=== PATIENT | male | born 1950 | race Caucasian/White ===

== ENCOUNTER 2021-08-07 19:02 | Inpatient (IN) | payer MEDICARE ==
[2021-08-07] MEDS ORDERED: LIDOCAINE 5% PATCH TOPICAL STA (20:23)
[2021-08-07] MEDS ORDERED: fentaNYL (PF) 50 MCG/ML 2 ML AMP IVP STA (20:23)
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
--- NOTE | 2021-08-07 20:27 | XR ---
EXAMINATION TYPE: XR shoulder complete RT DATE OF EXAM: 08/07/2021 COMPARISON: NONE HISTORY: Pain TECHNIQUE: 3 views FINDINGS: There is a single pin at the greater tuberosity of the humerus. No fracture nor dislocation . AC joint is intact IMPRESSION: No acute abnormality of the right shoulder
--- NOTE | 2021-08-07 20:29 | XR ---
EXAMINATION TYPE: XR ribs RT w pa chest xray DATE OF EXAM: 08/07/2021 COMPARISON: NONE HISTORY: Pain TECHNIQUE: 5 views FINDINGS: Heart and mediastinum are normal. Lungs are clear of infiltrate. No pleural effusion or pne umothorax. There is previous right shoulder surgery. There appears to be fractures of the anterior ri ght third and fourth ribs. IMPRESSION: Acute anterior right upper rib fractures.
[2021-08-07 21:15] LABS: Basophils # (A) 0.1 k/uL (0-0.2); Basophils % (A) 0 %; Eosinophils # (A) 0.1 k/uL (0-0.7); Eosinophils % (A) 0 %; HCT 51.5 % (39.0-53.0); HGB 17.2 gm/dL (13.0-17.5); Lymphocytes # (A) 1.7 k/uL (1.0-4.8); Lymphocytes % (A) 8 %; MCH 31.7 pg (25.0-35.0); MCHC 33.3 g/dL (31.0-37.0); MCV 95.1 fL (80.0-100.0); Monocytes # (A) 1.1 k/uL (0-1.0); Monocytes % (A) 5 %; Neutrophils # (A) 18.1 k/uL (1.3-7.7); Neutrophils % (A) 86 %; Platelet Count 301 k/uL (150-450); RBC 5.42 m/uL (4.30-5.90); RDW 13.2 % (11.5-15.5); WBC 21.2 k/uL (3.8-10.6)
[2021-08-07 21:26] LABS: Potassium 4.8 mmol/L (3.5-5.1); Total Bilirubin 0.9 mg/dL (0.2-1.3)
--- NOTE | 2021-08-07 21:39 | CT ---
EXAMINATION TYPE: CT chest wo con DATE OF EXAM: 08/07/2021 COMPARISON: None HISTORY: Severe pain, RT side scapula and ribs from fall CT DLP: 689.6 mGycm Automated exposure control for dose reduction was used. Images obtained from the thoracic inlet to the diaphragm with no contrast. The lungs are clear of consolidation. There is minimal subsegmental atelectasis at the lung bases. Th ere is very tiny amount of pleural air on the right anterior chest wall measuring less than 5 mm in t hickness. There is some soft tissue air on the right anterior chest wall. There is fracture of the a nterior right fourth rib. No significant displacement. There is minimal pleural thickening right post erior lung base. The thoracic spine is intact. No compression fracture. Heart appears normal. No radha cardial effusion. There are no hilar masses. There is no mediastinal adenopathy. Thoracic aorta appea rs intact. IMPRESSION: Anterior right fourth rib fracture with a very tiny right-sided pneumothorax and small pleural effusi on. Minimal atelectasis at the lung bases. Anterior soft tissue air consistent with traumatic injury adjacent to the rib fracture.
[2021-08-07] MEDS ORDERED: HYDROmorphone 0.5 MG/0.5 ML SYRINGE IVP STA (22:12)
[2021-08-07] MEDS ORDERED: NALOXONE 0.4 MG/ML 1 ML VIAL IV PRN (22:17)
[2021-08-07] MEDS: SODIUM CHLORIDE 0.9% 1,000 ML IV SCH (23:37)
--- NOTE | 2021-08-07 23:53 | CT ---
EXAMINATION TYPE: CT abdomen pelvis w con DATE OF EXAM: 08/07/2021 COMPARISON: None HISTORY: pain CT DLP: 1933.7 mGycm Automated exposure control for dose reduction was used. CONTRAST: Performed with IV Contrast, patient injected with 80 mL of Isovue 300. There is some patchy atelectasis at the lung bases. Heart size is normal. No pericardial effusion. No pleural effusion. Liver spleen stomach pancreas appear intact. There is single large calcified galls tone. The bile ducts are not dilated. There is no adrenal mass. Kidneys show satisfactory contrast opacification. There is 2 cm cyst upper pole right kidney. There i s no hydronephrosis. Ureters are not dilated. There is no retroperitoneal adenopathy. Bladder distend s smoothly. There is no inguinal hernia. No free fluid in the pelvis. No pelvic mass. No evidence of thickened appendix. There is no mesenteric edema. No ascites or free air. No bowel obs truction. The lumbar vertebrae have normal alignment. No compression fracture. There is mild spurring of the en dplates. Bony pelvis is intact. The hip joints are intact. There is mild acetabular spur formation. IMPRESSION: There is some patchy atelectasis at the lung bases. No acute abnormality in the abdomen and pelvis. Single large gallstone.
[2021-08-08] MEDS: HYDROmorphone 0.5 MG/0.5 ML SYRINGE IVP PRN ×4 (02:29→12:27)
[2021-08-08 05:57] LABS: Basophils % (A) 0 %; Eosinophils % (A) 0 %; HCT 49.5 % (39.0-53.0); HGB 15.7 gm/dL (13.0-17.5); Lymphocytes # (A) 1.7 k/uL (1.0-4.8); Lymphocytes % (A) 10 %; MCH 30.7 pg (25.0-35.0); MCHC 31.7 g/dL (31.0-37.0); MCV 96.9 fL (80.0-100.0); Mean Platelet Volume 8.2; Monocytes # (A) 0.9 k/uL (0-1.0); Monocytes % (A) 5 %; Neutrophils # (A) 14.5 k/uL (1.3-7.7); Neutrophils % (A) 83 %; Platelet Count 313 k/uL (150-450); RDW 13.4 % (11.5-15.5); WBC 17.4 k/uL (3.8-10.6)
[2021-08-08] MEDS: SODIUM CHLORIDE 0.9% 1,000 ML IV SCH ×3 (08:03→22:03)
--- NOTE | 2021-08-08 08:10 | XR ---
EXAMINATION TYPE: XR chest 2V DATE OF EXAM: 08/08/2021 COMPARISON: 08/07/2021 INDICATION: Chest trauma TECHNIQUE: Frontal and lateral views of the chest are obtained. FINDINGS: The heart size is normal. The pulmonary vasculature is normal. The lungs are clear. No pneumothorax is evident. IMPRESSION: 1. No acute pulmonary process. Follow-up can be performed as clinically indicated.
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
[2021-08-08] MEDS: methocarbamoL 500 MG TAB PO SCH ×4 (10:20→22:05)
[2021-08-08] MEDS ORDERED: lisinopriL 10 MG TAB PO SCH (12:15)
[2021-08-08 12:56] LABS: Glucose,Whole Blood 288 mg/dL (75-99)
[2021-08-08] MEDS ORDERED: amLODIPine 5 MG TAB PO STA (13:55)
[2021-08-08] MEDS: INSULIN ASPART (NovoLOG) 100 UNIT/ML VIAL SQ SCH ×3 (14:02→21:22)
[2021-08-08] MEDS ORDERED: HYDROmorphone 1 MG/ML 1 ML SYRINGE IVP PRN (16:16)
[2021-08-08 17:05] LABS: Glucose,Whole Blood 229 mg/dL (75-99)
[2021-08-08] MEDS ORDERED: hydrALAZINE HCL 25 MG TAB PO SCH (18:29)
[2021-08-08] MEDS ORDERED: hydrALAZINE HCL 25 MG TAB PO PRN (18:30)
[2021-08-08] MEDS ORDERED: hydrALAZINE HCL 25 MG TAB PO STA (18:31)
[2021-08-08] MEDS ORDERED: HYDROmorphone 0.5 MG/0.5 ML SYRINGE IVP PRN (18:33)
[2021-08-08] MEDS: SENNOSIDES-DOCUSATE SODIUM 1 EACH TAB PO SCH (20:41)
[2021-08-08] MEDS: FAMOTIDINE 20 MG TAB PO SCH (20:42)
[2021-08-08] MEDS: HEPARIN SODIUM,PORCINE/PF 5,000 UNIT/0.5 ML SYRINGE SQ SCH (20:42)
[2021-08-08] MEDS: LIDOCAINE 5% PATCH TOPICAL SCH (20:42)
[2021-08-08] MEDS: HYDROmorphone 1 MG/ML 1 ML SYRINGE IVP PRN (20:43)
[2021-08-08 20:48] LABS: Glucose,Whole Blood 282 mg/dL (75-99)
[2021-08-08] MEDS ORDERED: INSULIN DETEMIR (LEVEMIR) 100 UNIT/ML SYR SQ SCH (21:00)
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
[2021-08-09] MEDS: HYDROmorphone 1 MG/ML 1 ML SYRINGE IVP PRN ×3 (00:56→16:15)
[2021-08-09 07:26] LABS: Glucose,Whole Blood 223 mg/dL (75-99)
--- NOTE | 2021-08-09 07:35 | XR ---
EXAMINATION TYPE: XR chest 1V DATE OF EXAM: 08/09/2021 COMPARISON: 08/08/2021 HISTORY: 71-year-old male shortness of breath TECHNIQUE: Single frontal view of the chest is obtained. FINDINGS: Heart borderline in size. Trace pleural effusions remain. Vascular/interstitial prominence may be sli ghtly increased. IMPRESSION: Borderline heart size and continued trace bilateral pleural effusions. Vascular/interstitial density appears more pronounced. Correlate for slight progression in mild CHF.
[2021-08-09] MEDS: INSULIN ASPART (NovoLOG) 100 UNIT/ML VIAL SQ SCH ×4 (07:44→21:07)
[2021-08-09] MEDS: methocarbamoL 500 MG TAB PO SCH ×4 (08:22→21:09)
[2021-08-09] MEDS: SENNOSIDES-DOCUSATE SODIUM 1 EACH TAB PO SCH ×2 (08:22→21:08)
[2021-08-09] MEDS: FAMOTIDINE 20 MG TAB PO SCH ×2 (08:22→21:08)
[2021-08-09] MEDS ORDERED: amLODIPine 5 MG TAB PO SCH (09:00)
[2021-08-09] MEDS: HEPARIN SODIUM,PORCINE/PF 5,000 UNIT/0.5 ML SYRINGE SQ SCH ×2 (10:31→21:08)
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
[2021-08-09 10:43] LABS: Basophils # (A) 0.02 X 10*3/uL (0.00-0.10); Basophils % (A) 0.2 %; Eosinophils # (A) 0.02 X 10*3/uL (0.04-0.35); Eosinophils % (A) 0.2 %; HCT 45.4 % (39.6-50.0); HGB 14.1 g/dL (13.0-17.0); Immature Grans, Automated 0.3 %; Lymphocytes # (A) 1.16 X 10*3/uL (0.90-5.00); MCH 29.9 pg (27.0-32.0); MCHC 31.1 g/dL (32.0-37.0); MCV 96.4 fL (80.0-97.0); Mean Platelet Volume 10.8 fL (9.5-12.2); Monocytes # (A) 1.13 X 10*3/uL (0.20-1.00); Monocytes % (A) 9.7 %; NRBC Per 100 WBC 0 /100 WBCS (0.0-0.0); Neutrophils # (A) 9.23 X 10*3/uL (1.80-7.70); Neutrophils % (A) 79.6 %; Platelet Count 234 X 10*3/uL (140-440); RBC 4.71 X 10*6/uL (4.40-5.60)
[2021-08-09] MEDS: SODIUM CHLORIDE 0.9% 1,000 ML IV SCH (10:44)
[2021-08-09 11:00] LABS: African American GFR (CKD) 99.9 (60.0-200.0); Albumin 4.2 g/dL (3.8-4.9); Albumin/Globulin Ratio 1.91 (1.60-3.17); Anion Gap 16.7 mmol/L (10.00-18.00); BUN/Creat Ratio 22.78 Ratio (12.00-20.00); Blood Urea Nitrogen 20.5 mg/dL (9.0-27.0); Calcium 9.1 mg/dL (8.7-10.3); Carbon Dioxide 22.3 mmol/L (20.0-27.5); Globulin 2.2 g/dL (1.6-3.3); Non-African American GFR(CKD) 86.2 (60.0-200.0); Potassium 4.6 mmol/L (3.5-5.5); Total Bilirubin 1.1 mg/dL (0.30-1.20); Total Protein 6.4 g/dL (6.2-8.2)
[2021-08-09 12:12] LABS: Glucose,Whole Blood 254 mg/dL (75-99)
[2021-08-09] MEDS ORDERED: FUROSEMIDE 10 MG/ML 4 ML VIAL IV STA (14:50)
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
[2021-08-09 17:04] LABS: Glucose,Whole Blood 312 mg/dL (75-99)
[2021-08-09 17:27] LABS: Appearance,Urine Clear (Clear); Bilirubin,Urine Negative (Negative); Blood,Urine Negative (Negative); Color,Urine Colorless; Glucose,Urine (UA) 4+ (Negative); Ketones,Urine 1+ (Negative); Leukocyte Esterase,Urine Negative (Negative); Nitrite,Urine Negative (Negative); Protein,Urine Negative (Negative); Specific Gravity,Urine 1.005 (1.001-1.035); Urobilinogen,Urine <2.0 mg/dL (<2.0)
[2021-08-09 20:47] LABS: Glucose,Whole Blood 284 mg/dL (75-99)
[2021-08-09] MEDS: FUROSEMIDE 10 MG/ML 4 ML VIAL IV SCH (21:07)
[2021-08-09] MEDS: LIDOCAINE 5% PATCH TOPICAL SCH (21:07)
[2021-08-09] MEDS: HYDROcodone/APAP 7.5-325MG 1 EACH TAB PO PRN (21:09)
[2021-08-09] MEDS: INSULIN DETEMIR (LEVEMIR) 100 UNIT/ML SYR SQ SCH (21:43)
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
[2021-08-10] MEDS: HYDROcodone/APAP 7.5-325MG 1 EACH TAB PO PRN ×3 (03:31→18:14)
[2021-08-10 06:53] LABS: Glucose,Whole Blood 209 mg/dL (75-99)
[2021-08-10] MEDS: INSULIN ASPART (NovoLOG) 100 UNIT/ML VIAL SQ SCH ×6 (08:20→21:35)
[2021-08-10] MEDS: lisinopriL 10 MG TAB PO SCH (08:20)
[2021-08-10] MEDS: SENNOSIDES-DOCUSATE SODIUM 1 EACH TAB PO SCH ×2 (08:20→20:44)
[2021-08-10] MEDS: FAMOTIDINE 20 MG TAB PO SCH ×2 (08:20→20:44)
[2021-08-10] MEDS: FUROSEMIDE 10 MG/ML 4 ML VIAL IV SCH (08:21)
[2021-08-10] MEDS: methocarbamoL 500 MG TAB PO SCH ×4 (08:21→20:44)
[2021-08-10] MEDS: HEPARIN SODIUM,PORCINE/PF 5,000 UNIT/0.5 ML SYRINGE SQ SCH ×2 (08:22→20:43)
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
[2021-08-10 10:28] LABS: Basophils # (A) 0.05 X 10*3/uL (0.00-0.10); Basophils % (A) 0.5 %; Eosinophils # (A) 0.13 X 10*3/uL (0.04-0.35); Eosinophils % (A) 1.3 %; HCT 50.6 % (39.6-50.0); HGB 16.1 g/dL (13.0-17.0); Immature Grans, Automated 0.4 %; Lymphocytes # (A) 1.94 X 10*3/uL (0.90-5.00); Lymphocytes % (A) 19.5 %; MCH 30.4 pg (27.0-32.0); MCHC 31.8 g/dL (32.0-37.0); MCV 95.5 fL (80.0-97.0); Mean Platelet Volume 10.9 fL (9.5-12.2); NRBC Per 100 WBC 0 /100 WBCS (0.0-0.0); Neutrophils # (A) 6.71 X 10*3/uL (1.80-7.70); Neutrophils % (A) 67.3 %; Platelet Count 268 X 10*3/uL (140-440); RDW 12.9 % (11.5-14.5); WBC 9.97 X 10*3/uL (4.50-10.00)
[2021-08-10 11:01] LABS: Anion Gap 18.8 mmol/L (10.00-18.00); BUN/Creat Ratio 19.3 Ratio (12.00-20.00); Blood Urea Nitrogen 19.3 mg/dL (9.0-27.0); Carbon Dioxide 28.9 mmol/L (20.0-27.5); Magnesium 2.1 mg/dL (1.5-2.4); Non-African American GFR(CKD) 75.9 (60.0-200.0); Potassium 3.9 mmol/L (3.5-5.5)
--- NOTE | 2021-08-10 11:05 | CA ---
Transthoracic Echo Report Name: Niko Rodriguez Age: 71 Gender: M : 1950 Exam Date: 08/10/2021 08:47 Exam Location: [place] [facility] Ht (in): 73 Wt (lb): 245 Ordering Physician: Luis Felipe Moore MD Attending/Referring Phys: [id number], Teresa Tube Knitter Neela Clark, TIFFANI Procedure CPT: Indications: Rule out heart disease Cardiac Hx: Technical Quality: Technically difficult study Contrast 1: Lumason Total Dose (mL): 3 Contrast 2: Total Dose (mL): MEASUREMENTS (Male / Female) Normal Values 2D ECHO LV Diastolic Diameter PLAX 4.2 cm 4.2 - 5.9 / 3.9 - 5.3 cm LV Systolic Diameter PLAX 2.8 cm IVS Diastolic Thickness 1.6 cm 0.6 - 1.0 / 0.6 - 0.9 cm LVPW Diastolic Thickness 1.5 cm 0.6 - 1.0 / 0.6 - 0.9 cm LV Relative Wall Thickness 0.8 RV Internal Dim ED PLAX 3.2 cm LA Systolic Diameter LX 3.9 cm 3.0 - 4.0 / 2.7 - 3.8 cm M-MODE Aortic Root Diameter MM 3.7 cm MV E Point Septal Separation 0.6 cm AV Cusp Separation MM 2.5 cm DOPPLER AV Peak Velocity 136.3 cm/s AV Peak Gradient 7.4 mmHg AI Peak Velocity 255.6 cm/s AI Peak Gradient 26.1 mmHg AI Pressure Half Time 354.6 ms MV Area PHT 3.3 cm??? Mitral E Point Velocity 63.9 cm/s Mitral A Point Velocity 92.4 cm/s Mitral E to A Ratio 0.7 MV Deceleration Time 233.2 ms MV E' Velocity 5.8 cm/s Mitral E to MV E' Ratio 11.0 TR Peak Velocity 327.2 cm/s TR Peak Gradient 42.8 mmHg Right Ventricular Systolic Press 46.4 mmHg FINDINGS Left Ventricle Left ventricular ejection fraction is estimated at 60-65 %. Left ventricular cavity size normal. Moderate concentric left ventricular hypertrophy. Right Ventricle Normal right ventricular size and function. Moderate pulmonary hypertension. Right Atrium Normal right atrial size. Left Atrium Normal left atrial size. Mitral Valve No mitral stenosis, regurgitation or prolapse. Aortic Valve Trileaflet aortic valve. No aortic valve stenosis. Mild aortic regurgitation. Tricuspid Valve Mild tricuspid regurgitation. Pulmonic Valve Pulmonic valve not well visualized. Pericardium Normal pericardium. Aorta Normal size aortic root and proximal ascending aorta. CONCLUSIONS Moderate LVH Normal left ventricular ejection fraction 60-65% RVSP 46 Mild tricuspid regurgitation No pericardial effusion Previewed by: Dr. Tato Gómez DO (Electronically Signed) Final Date: 10 August 2021 11:04
[2021-08-10 11:53] LABS: Glucose,Whole Blood 303 mg/dL (75-99)
[2021-08-10 17:09] LABS: Glucose,Whole Blood 278 mg/dL (75-99)
[2021-08-10] MEDS: INSULIN DETEMIR (LEVEMIR) 100 UNIT/ML SYR SQ SCH (20:43)
[2021-08-10 20:44] LABS: Glucose,Whole Blood 333 mg/dL (75-99)
[2021-08-10] MEDS: LIDOCAINE 5% PATCH TOPICAL SCH (20:44)
[2021-08-10] MEDS ORDERED: LIDOCAINE 5% PATCH TOPICAL SCH (21:45)
[2021-08-10] MEDS ORDERED: LIDOCAINE 5% PATCH TOPICAL PRN (21:55)
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
[2021-08-10] MEDS ORDERED: INSULIN DETEMIR (LEVEMIR) 100 UNIT/ML SYR SQ ONE ×3 (22:00→22:50)
[2021-08-11] MEDS: HYDROcodone/APAP 7.5-325MG 1 EACH TAB PO PRN ×3 (00:44→12:37)
[2021-08-11 07:02] LABS: Glucose,Whole Blood 197 mg/dL (75-99)
[2021-08-11 07:37] VITALS: RESP 18
[2021-08-11] MEDS: lisinopriL 10 MG TAB PO SCH (07:49)
[2021-08-11] MEDS: INSULIN ASPART (NovoLOG) 100 UNIT/ML VIAL SQ SCH ×7 (07:49→17:43)
[2021-08-11] MEDS: SENNOSIDES-DOCUSATE SODIUM 1 EACH TAB PO SCH (07:49)
[2021-08-11] MEDS: FAMOTIDINE 20 MG TAB PO SCH (07:49)
[2021-08-11] MEDS: HEPARIN SODIUM,PORCINE/PF 5,000 UNIT/0.5 ML SYRINGE SQ SCH (07:49)
[2021-08-11] MEDS: methocarbamoL 500 MG TAB PO SCH ×2 (08:54→15:30)
[2021-08-11] MEDS ORDERED: FUROSEMIDE 40 MG TAB PO SCH (09:00)
[2021-08-11] MEDS ORDERED: amLODIPine 5 MG TAB PO SCH (11:00)
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
[2021-08-11 11:29] VITALS: BMI 32.3
[2021-08-11 11:48] LABS: Glucose,Whole Blood 335 mg/dL (75-99)
[2021-08-11 13:44] VITALS: BP 126/71; PULSE 90; TEMP 98.1
[2021-08-11 15:33] LABS: Glucose,Whole Blood 309 mg/dL (75-99)
[2021-08-11] MEDS ORDERED: INSULIN ASPART (NovoLOG) 100 UNIT/ML VIAL SQ ONE (16:02)
[2021-08-11 17:09] LABS: Glucose,Whole Blood 320 mg/dL (75-99)
[2021-08-11] MEDS ORDERED: metFORMIN 500 MG TAB PO SCH (17:30)
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
[2021-08-11 18:31] LABS: Glucose,Whole Blood 282 mg/dL (75-99)
[2021-08-11] MEDS ORDERED: INSULIN DETEMIR (LEVEMIR) 100 UNIT/ML SYR SQ SCH (21:00)
== END 2021-08-11 18:36 | disposition left against medical advice (07) | DRG 199 ==
LOC: EC 19:02 → 6NMEDSUR 22:17 → OBSVTOIN 08-09 13:35
PROVIDERS: ADMIT Internal Medicine; ATTEND Internal Medicine
DX: S27.0XXA Traumatic pneumothorax, initial encounter (principal); I50.31 Acute diastolic (congestive) heart failure; J96.01 Acute respiratory failure with hypoxia; S22.31XA Fracture of one rib, right side, initial encounter for closed fracture; J98.11 Atelectasis; N17.9 Acute kidney failure, unspecified; Z53.29 Procedure and treatment not carried out because of patient's decision for other reasons; E11.65 Type 2 diabetes mellitus with hyperglycemia; K21.9 Gastro-esophageal reflux disease without esophagitis; I11.0 Hypertensive heart disease with heart failure; E78.5 Hyperlipidemia, unspecified; Z20.822 Contact with and (suspected) exposure to COVID-19; G47.30 Sleep apnea, unspecified; M19.90 Unspecified osteoarthritis, unspecified site; V18.0XXA Pedal cycle driver injured in noncollision transport accident in nontraffic accident, initial encounter; Y93.55 Activity, bike riding; Z79.4 Long term (current) use of insulin; Z79.84 Long term (current) use of oral hypoglycemic drugs; Z79.899 Other long term (current) drug therapy; Z85.820 Personal history of malignant melanoma of skin; Z96.652 Presence of left artificial knee joint; Z88.0 Allergy status to penicillin; I07.1 Rheumatic tricuspid insufficiency; Z86.79 Personal history of other diseases of the circulatory system
CPT/HCPCS: 36415; 71045; 71046; 71250; 74177; 80048; 80053; 81003; 83036; 83690; 83735; 83880; 84484; 85025; 87636; 93306; 94760; 96374; 96375; 99285

== ENCOUNTER 2022-07-05 10:46 | Day surgery (SDC) | payer MEDICARE ==
[2022-06-30 14:36] VITALS: BMI 30.4
--- NOTE | 2022-07-03 12:36 | P.HPOR ---
History of Present Illness H&P Date: 07/03/22 Chief Complaint: Right ring finger trigger finger, small finger dupuytrens c ontracture Subjective: This is a 72 year old male that presents today for a post-operative visit after undergoing left ring finger A1 kyree release and left hand Dupuytrens palmar fasciectomy on 05/03/22. He is doing well and has had no issues and noticed the finger does not lock anymore. He wishes to schedule surgery for his right ring finger trigger finger and right small finger Dupuytren's contracture. He has had right sided pain and locking/catching of the ring finger similar to the left ring finger for several months. He also has a right small finger Dupuytren's contracture that has been present for several years and is no long able to put his hand flat on a table and finds the finger gets in the way due to the inability to fully extend the digit. Physical Examination: LUE: AIN/PIN/Radial/Ulnar/Median motor intact. Radial/Ulnar/Median SILT. 2+/4 Radial/Ulnar pulses palpated. Volar penny incision well approximated with aviles tures intact. RUE: AIN/PIN/Radial/Ulnar/Median motor intact. Radial/Ulnar/Median SILT. 2+/4 Radial/Ulnar pulses palpated. RSF Dupuytren's chord with 45 degree flexion contracture of PIP joint. TTP over RRF A1 kyree with locking and catching. Impression: 1.) S/P Left ring finger A1 kyree release and left hand Dupuytrens palmar fasciectomy 2.) Right small finger Dupuytrens contracture 3.) Right ring finger trigger finger Plan: Diagnosis and treatment options were discussed with the patient. Sutures are removed in office today. He may resume normal activity and may continue to work on ROM. He wishes to proceed with right ring finger A1 kyree release and a right small finger Dupuytren's palmar fasciectomy. Risks and benefits of surgery including bleeding, infection, damage to surrounding tissue, need for further surgery, residual numbness were discussed and the patient wished to go forward with surgery. The patient is agreeable with this plan. -Mati Deutsch DO Orthopedic Hand/Upper Extremity Surgeon Past Medical History Past Medical History: Cancer, Diabetes Mellitus, GERD/Reflux, Hyperlipidemia, Hypertension, Osteoarthritis (OA), Sleep Apnea/CPAP/BIPAP Additional Past Medical History / Comment(s): varicose veins, melanoma, hx if p ericarditis History of Any Multi-Drug Resistant Organisms: None Reported Past Surgical History: Back Surgery, Heart Catheterization, Joint Replacement, Tonsillectomy Additional Past Surgical History / Comment(s): surgery for sleep apnea, left knee replacement,left achilles tendon repair, erika knee arthroscopy, rt shoulder rotator cuff, laminectomy, LT HAND DUPUTYTREN'S PALMAR SX, LT RING FINGER KYREE RELEASE. RT CHEST AREA-HAD A BIOSPY OF SKIN-STILL NOT HEALED COMPLETELY- INSTRUCTED TO NOTIFY DR. DEUTSCH IF NOT BETTER BY SUNDAY. Past Anesthesia/Blood Transfusion Reactions: No Reported Reaction Smoking Status: Never smoker - Past Family History Mother Family Medical History: Cancer Medications and Allergies Home Medications Medication Instructions Recorded Confirmed Type Ascorbic Acid [Vitamin C] 1,000 mg PO DAILY 05/24/18 06/30/22 History Cholecalciferol (Vitamin D3) 2,000 unit PO DAILY 05/24/18 06/30/22 History [Vitamin D3] Multivit-Min/FA/Lycopen/Lutein 1 tab PO DAILY 05/24/18 06/30/22 History [Centrum Silver Tablet] Simvastatin [Zocor] 40 mg PO HS 05/24/18 06/30/22 History Vitamin E (Dl,Tocopheryl Acet) 400 unit PO DAILY 05/24/18 06/30/22 History [Vitamin E (400 Iu = 180 mg)] lisinopriL [Zestril] 10 mg PO DAILY 05/24/18 06/30/22 History Pierson-3 Fatty Acids/Fish Oil [Fish 1 cap PO DAILY 08/08/21 06/30/22 History Oil 1,000 mg Softgel] Canagliflozin [Invokana] 100 mg PO DAILY #10 tab 08/11/21 06/30/22 Rx Ibuprofen [Motrin] 400 mg PO Q8HR PRN 3 Days #10 tab 08/11/21 06/30/22 Rx Insulin Glargine,Hum.rec.anlog 40 units SQ HS 04/28/22 06/30/22 History [Lantus Solostar Pen] sitaGLIPtin PHOS/metFORMIN HCL 1 each PO BID 02/17/23 04/21/23 History [Janumet 50-1,000 mg Tablet] Omeprazole 20 mg PO DAILY 06/30/22 06/30/22 History Allergies Allergy/AdvReac Type Severity Reaction Status Date / Time Penicillins Allergy Rash/Hives Verified 06/30/22 14:19 Physical Examination Osteopathic Statement: *. No significant issues noted on an osteopathic structural exam other than those noted in the History and Physical/Consult.
[~2022-07-05 10:46] MED LIST: DEXAMETHASONE SOD PHOSPHATE 4 MG/ML 1 ML VIAL IV ONE; HYDROmorphone 0.5 MG/0.5 ML SYRINGE IVP PRN; LACTATED RINGERS 1,000 ML IV SCH; LIDOCAINE 1% (10MG/ML) FOR IV START INTRADERMA PRN; ONDANSETRON 4 MG/2 ML VIAL IVP ONE; Pre Op ABX Message 1 EACH MISC MISCELLANE ONE
[2022-07-05 11:37] LABS: Glucose,Whole Blood 209 mg/dL (70-110)
[2022-07-05] MEDS ORDERED: INSULIN ASPART (NovoLOG) 100 UNIT/ML VIAL SQ ONE (11:40)
[2022-07-05] MEDS ORDERED: LIDOCAINE 2% INJ 20 MG/ML (2 ML VIAL) ONE (12:06)
[2022-07-05] MEDS ORDERED: MIDAZOLAM 2 MG/2 ML VIAL ONE (12:06)
[2022-07-05] MEDS ORDERED: PROPOFOL 10 MG/ML 20 ML VIAL IV ONE (12:06)
[2022-07-05] MEDS ORDERED: fentaNYL (PF) 50 MCG/ML 2 ML AMP ONE (12:06)
[2022-07-05] MEDS ORDERED: BUPIVACAINE (PF) 0.5% 30 ML VIAL SQ ONE (13:00)
[2022-07-05] MEDS ORDERED: BACITRACIN OINT 1 EACH PACKET TOPICAL ONE (13:00)
[2022-07-05 13:31] VITALS: TEMP 98
--- NOTE | 2022-07-05 13:38 | P.OP ---
Date of Procedure: 07/05/22 Preoperative Diagnosis: 1.) Right small finger Dupuytren's contracture 2.) Right ring finger trigger finger Postoperative Diagnosis: 1.) Right small finger Dupuytren's contracture 2.) Right ring finger trigger finger Procedure(s) Performed: 1.) Right small finger Dupuytren's contracture palmar fasciectomy 2.) Right ring finger trigger finger A1 gray release Anesthesia: TONIAA Surgeon: Mati Donovan Gang Sawyer #1: Arash Choe Estimated Blood Loss (ml): 0 Pathology: none sent Condition: stable Disposition: PACU Description of Procedure: This is a 72 year old male who presents today for surgical intervention for right small finger Dupuytren's contracture and right ring finger A1 gray release for trigger finger that has failed conservative treatment. Risks and benefits of surgery were discussed with the patient including bleeding, damage to surrounding tissue, infection, recurrence, need for further surgery as well as risks of anesthesia including pulmonary embolism and even and the patient wished to proceed with surgical intervention. The patient was seen in the pre-operative area by myself. Consent and H&P were completed and updated. The correct extremity was marked in the pre-operative area by myself and all other questions were answered. Operative Narrative: The patient was brought to the operating room by the department of anesthesia. They remained on the portable stretcher and a rolling hand table was brought to the side of the operative extremity. Pre-operative time out was performed indicating the correct patient, procedure and laterality. All in the room agreed. Pre-operative antibiotics were given prior to skin incision. The patient was then drifted off to sleep by the department of anesthesia. A nonsterile tourniquet was then applied to the operative extremity and the right upper extremity was then prepped and draped in normal sterile fashion. The operative extremity was the exsanguinated with an esmarch bandage and the tourniquet was inflated to 250mmHg. 15 blade scalpel was then used to make a incision in a Radha type fashion of the right small finger Dupuytren's cord from the level of the mid palm to the level of the PIP joint crease. Blunt dissection was taken down to reveal the thickened Dupuytrens chord originating from the palmar fascia. Neurovascular bundles were identified and protected and blunt tentomy scissors and combination of 15 blade scalpel were used to the pathologic fascial tissues from surrounding structures. The thick fascial tissue was well dissected out from deep and superficial tissues and released from it's proximal attachment to the palmar fascia and then released in a proximal to distal fashion. After excision at the distal portion attachment at the level of the PIP joint crease the finger was able to be fully extended. Neurovascular bundles were then identified and directly visualized to the small finger and remained intact. The A1 gray was identified at the base of the ring finger through the same incision. Neurovascular bundles were protected on both sides. Blunt dissection was taken down to the A1 gray which was released from proximal to distal. The hand was then taken through range of motion and no locking or catching was appreciated. The wound was then irrigated and skin closure was performed with 4-0 nylon sutures. 10cc's total of 0.5% bupivicaine was injected to perform digital blocks of the ring and small finger. Large bulky soft dressing with fluffs, adaptic, bacitracin, cast padding and bryanna wrap was applied. Tourniquet was let down and all digits had immediate perfusion. The patient was then woken by the departde nt of anesthesia and transferred to PACU in stable condition. Arash DIAZ was present for the case in it's entirety to assist in umana portions of the case and protection of vital neurovascular structures. Mati Donovan D.O. Orthopedic Hand/Upper Extremity Surgeon
[2022-07-05 13:54] LABS: Glucose,Whole Blood 178 mg/dL (70-110)
[2022-07-05 14:20] VITALS: PULSE 58; RESP 20
[2022-07-05 14:38] VITALS: BP 137/74
== END 2022-07-05 15:22 | disposition home or self-care (01) ==
LOC: OR 10:46
PROVIDERS: ATTEND Orthopaedic Surgery Hand Surgery
DX: M65.341 Trigger finger, right ring finger (principal); M72.0 Palmar fascial fibromatosis [Dupuytren]; E11.9 Type 2 diabetes mellitus without complications; K21.9 Gastro-esophageal reflux disease without esophagitis; E78.5 Hyperlipidemia, unspecified; M19.90 Unspecified osteoarthritis, unspecified site; G47.33 Obstructive sleep apnea (adult) (pediatric); Z99.89 Dependence on other enabling machines and devices; Z95.5 Presence of coronary angioplasty implant and graft; Z98.890 Other specified postprocedural states; Z80.8 Family history of malignant neoplasm of other organs or systems; Z79.899 Other long term (current) drug therapy; Z79.84 Long term (current) use of oral hypoglycemic drugs; Z79.1 Long term (current) use of non-steroidal anti-inflammatories (NSAID); Z88.0 Allergy status to penicillin
CPT/HCPCS: 26123; J2250; J1100; J2405; J3010; J2704; J2001

== ENCOUNTER → 2024-06-23 | Outpatient (CLI) | payer MEDICARE ==
[2024-06-23 08:11] LABS: African American GFR (CKD) >90 (>60 ml/min/1.73 sqM); Blood Urea Nitrogen 23 mg/dL (9-20); Non-African American GFR(CKD) 84 (>60 ml/min/1.73 sqM)
--- NOTE | 2024-06-23 10:03 | CT ---
EXAMINATION TYPE: CT urogram wo/w con DATE OF EXAM: 06/23/2024 9:17 AM COMPARISON: 08/07/2021. CT abdomen pelvis most recent from CLINICAL INDICATION: Male, 74 years old with history of R31.0 GROSS HEMATURIA; PHH, no pain. TECHNIQUE: Urogram with imaging of the abdomen and pelvis. Coronal and sagittal reformats were perfo rmed. 2D and 3D reconstructions are performed to assist visualization of the urinary tract on a [employer] workstation. Contrast used:100ml mL of Isovue 370 with IV Contrast, Oral contrast used: None. CT DLP: 4039.70 mGycm, Automated exposure control for dose reduction was used. FINDINGS: LOWER CHEST: There is scattered coronary calcifications. Otherwise, no significant findings. GENITOURINARY: RIGHT KIDNEY AND URETER: No calculi. No hydronephrosis or hydroureter. A few cortical cysts, largest measuring 2.0 cm.. No urothelial lesions: no filling defect, dilation, stricture or wall thickening. LEFT KIDNEY AND URETER: No calculi. No hydronephrosis or hydroureter. Tiny 5 mm cortical cyst. No uro thelial lesions: no filling defect, dilation, stricture or wall thickening. URINARY BLADDER: Moderate circumferential bladder wall thickening. Mild perivesicular fat stranding. There is a 3.1 x 1.6 cm soft tissue mass along the left lateral bladder wall. REPRODUCTIVE: Prostate gland remains mildly enlarged at 4.8 cm wide. ABDOMEN LIVER: Unremarkable. GALLBLADDER AND BILE DUCTS: Incidental 1.5 cm gallstone. No abnormal gallbladder distention. No bilia ry ductal dilatation. PANCREAS: Unremarkable. SPLEEN: Unremarkable. ADRENAL GLANDS: Unremarkable. STOMACH AND BOWEL: Tiny hiatal hernia. No evidence of bowel obstruction. Moderate stool burden. Redun dant sigmoid colon. No pericolonic inflammatory change. PERITONEUM: No evidence of pneumoperitoneum, free fluid, or adenopathy. VASCULATURE: No evidence of aortic aneurysm. MUSCULOSKELETAL: Hypertrophic facet arthropathy mid to lower lumbar spine especially on the left. Baa strup's disease mid to lower lumbar spine. Disc bulge and ligamentum flavum thickening at L3-L4 may c ontribute to a moderate focal spinal canal stenosis. No osseous destructive process. LYMPH NODES: No gross evidence for lymphadenopathy. SOFT TISSUE/ABDOMINAL WALL: Unremarkable IMPRESSION: 1. A 3.1 x 1.6 cm soft tissue mass along the left lateral bladder wall. Highly suspicious for urothel ial carcinoma. Further workup advised. 2. A few scattered small benign cysts within both kidneys, largest measuring 2.0 cm. No nephrolithias is or hydronephrosis. 3. Mild prostatomegaly of 4.8 cm wide. Mild circumferential bladder wall thickening could reflect chr onic bladder wall hypertrophy. Correlate to exclude cystitis. 4. Incidental 1.5 cm gallstone. Moderate stool burden. [facility], , 06/23/2024 10:01 AM
== END | disposition home or self-care (01) ==
LOC: RADCTMAIN 07:35
PROVIDERS: ATTEND Urology
DX: N40.0 Benign prostatic hyperplasia without lower urinary tract symptoms (principal); R31.0 Gross hematuria; N32.89 Other specified disorders of bladder; N28.1 Cyst of kidney, acquired
CPT/HCPCS: 82565; 84520; 74178; 36415; 74400; Q9967

== ENCOUNTER → 2024-07-15 | Outpatient (CLI) | payer MEDICARE ==
[2024-07-15 08:17] LABS: African American GFR (CKD) >90 (>60 ml/min/1.73 sqM); Blood Urea Nitrogen 17 mg/dL (9-20); Non-African American GFR(CKD) 85 (>60 ml/min/1.73 sqM)
--- NOTE | 2024-07-15 08:51 | CT ---
EXAMINATION TYPE: CT chest w con DATE OF EXAM: 07/15/2024 8:37 AM COMPARISON: 08/07/2021 CLINICAL INDICATION: Male, 74 years old with history of C67.9 MALIGNANT NEOPLASM OF BLADDER, UNSPECIF IED; PHH, bladder CA TECHNIQUE: Multiple axial images were obtained through the chest. Sagittal and coronal reformats were created for review. Contrast used:100 mL of Isovue [address] DLP: 533.4 mGycm, Automated exposure control for dose reduction was used. FINDINGS: Heart is normal size without pericardial effusion. Mild aortic valve calcifications. Scattered LAD an d RCA coronary artery calcifications are present. Ectatic upper ascending aorta 3.9 cm. Minimal atherosclerotic arch calcifications. Conventional arter ial vessel branching anatomy. No thoracic lymph adenopathy by CT size criteria. Trace bilateral gynecomastia. Mildly enlarged caliber main right and left pulmonary arteries up to 2.6 cm may reflect underlying pu lmonary hypertension. Lungs show no consolidation or pleural effusion. No suspicious pulmonary nodule identified. Tiny hiatal hernia. Incidental 1.5 cm gallstone and scattered mild to moderate stool. 1.6 cm medial u pper pole cyst right kidney redemonstrated. Bones: [facility] mid to lower thoracic spine. IMPRESSION: 1. No acute pulmonary process or suspicious pulmonary nodules. 2. Scattered LAD and RCA coronary artery calcifications. Possible underlying pulmonary arterial hyper tension. 3. Tiny hiatal hernia and 1.5 cm gallstone. [facility], Workstation: [email or web address], 07/15/2024 8:49 AM
--- NOTE | 2024-07-15 11:38 | NM ---
INDICATION: Patient age:Male; 74 years old; Reason for study: C67.9 MALIGNANT NEOPLASM OF BLADDER, UNSPECIFIED; [facility]. COMPARISON: CT chest 07/15/2024, CT urogram 06/23/2024, CT abdomen and pelvis 08/07/2021. TECHNIQUE: Intravenous administration of 24.4 mCi of Technetium 99m-hydroxydiphosphonate followed by multiple scintigraphic images of the appendicular and axial skeleton. Additionally, small field of vi ew planar anterior and posterior images of the lumbosacral spine and pelvis. FINDINGS: No abnormal uptake is identified within the appendicular or axial skeleton to suggest metastatic dise ase. There is increased uptake within the bilateral shoulder, bilateral knees, sternoclavicular, left ankl e, and sacroiliac joints consistent with degenerative changes. No other photopenic areas or areas of increased activity are identified. Physiologic radiotracer activity is demonstrated in the kidneys and bladder. IMPRESSION: Nothing to suggest osseous metastatic disease. [facility], , 07/15/2024 11:36 AM
== END | disposition home or self-care (01) ==
LOC: RADCTMAIN 07:40
PROVIDERS: ATTEND Urology
DX: C67.9 Malignant neoplasm of bladder, unspecified (principal); I25.10 Atherosclerotic heart disease of native coronary artery without angina pectoris; K80.20 Calculus of gallbladder without cholecystitis without obstruction; K44.9 Diaphragmatic hernia without obstruction or gangrene
CPT/HCPCS: 82565; 84520; 71260; 78306; A9503; Q9967

== ENCOUNTER 2024-07-19 17:00 | Emergency (ER) | payer MEDICARE ==
--- NOTE | 2024-07-19 18:20 | ED ---
General Adult HPI - General Chief complaint: Skin/Abscess/Foreign Body Stated complaint: B/L Leg Rash Time Seen by Provider: 07/19/24 17:08 Source: patient, RN notes reviewed Limitations: no limitations - History of Present Illness Initial comments: 74-year-old male presents to the emergency department for evaluation of rash on both of his legs. Patient states that this started on morning. He states that was mostly on his left foot and ankle. He notes that today it is significantly progressed to the tops of both of his feet and up his legs. He notes that it may be mildly itchy but is not painful. He denies any other symptoms. Denies any fever, chills, URI symptoms. - Related Data Home Medications Medication Instructions Recorded Confirmed Ascorbic Acid [Vitamin C] 1,000 mg PO DAILY 05/24/18 07/05/22 Cholecalciferol (Vitamin D3) 2,000 unit PO DAILY 05/24/18 07/05/22 [Vitamin D3] Multivit-Min/FA/Lycopen/Lutein 1 tab PO DAILY 05/24/18 07/05/22 [Centrum Silver Tablet] Simvastatin [Zocor] 40 mg PO HS 05/24/18 07/05/22 Vitamin E (Dl,Tocopheryl Acet) 400 unit PO DAILY 05/24/18 07/05/22 [Vitamin E (400 Iu = 180 mg)] lisinopriL [Zestril] 10 mg PO DAILY 05/24/18 07/05/22 [place]-3 Fatty Acids/Fish Oil [Fish 1 cap PO DAILY 08/08/21 07/05/22 Oil 1,000 mg Softgel] Insulin Glargine,Hum.rec.anlog 40 units SQ HS 04/28/22 07/05/22 [Lantus Solostar Pen] sitaGLIPtin PHOS/metFORMIN HCL 1 each PO BID 04/28/22 07/05/22 [Janumet 50-1,000 mg Tablet] Omeprazole 20 mg PO DAILY 06/30/22 07/05/22 Previous Rx's Medication Instructions Recorded Canagliflozin [Invokana] 100 mg PO DAILY #10 tab 08/11/21 Ibuprofen [Motrin] 400 mg PO Q8HR PRN 3 Days #10 tab 08/11/21 Cephalexin [Keflex] 500 mg PO Q6HR #28 cap 07/19/24 Allergies Allergy/AdvReac Type Severity Reaction Status Date / Time Penicillins Allergy Rash/Hives Verified 07/19/24 17:06 Review of Systems ROS Statement: Those systems with pertinent positive or pertinent negative responses have been documented in the HPI. ROS Other: All systems not noted in ROS Statement are negative. Past Medical History Past Medical History: Cancer, Diabetes Mellitus, GERD/Reflux, Hyperlipidemia, Hypertension, Osteoarthritis (OA), Sleep Apnea/CPAP/BIPAP Additional Past Medical History / Comment(s): varicose veins, melanoma, hx if pericarditis, Bladder cancer History of Any Multi-Drug Resistant Organisms: None Reported Past Surgical History: Back Surgery, Heart Catheterization, Joint Replacement, Tonsillectomy Additional Past Surgical History / Comment(s): surgery for sleep apnea, left knee replacement,left achilles tendon repair, erika knee arthroscopy, rt shoulder rotator cuff, laminectomy, LT HAND DUPUTYTREN'S PALMAR SX, LT RING FINGER KYREE RELEASE. RT CHEST AREA-HAD A BIOSPY OF SKIN-STILL NOT HEALED COMPLETELY- INSTRUCTED TO NOTIFY DR. DEUTSCH IF NOT BETTER BY SUNDAY. Past Anesthesia/Blood Transfusion Reactions: No Reported Reaction Past Psychological History: No Psychological Hx Reported Smoking Status: Never smoker Past Alcohol Use History: None Reported Past Drug Use History: None Reported - Past Family History Mother Family Medical History: Cancer General Exam Limitations: no limitations General appearance: alert, in no apparent distress Head exam: Present: atraumatic, normocephalic, normal inspection Eye exam: Present: normal appearance, PERRL, EOMI. Absent: scleral icterus, conjunctival injection, periorbital swelling ENT exam: Present: normal exam, mucous membranes moist Neck exam: Present: normal inspection. Absent: tenderness, meningismus, lymphadenopathy Respiratory exam: Present: normal lung sounds bilaterally. Absent: respiratory distress, wheezes, rales, rhonchi, stridor Cardiovascular Exam: Present: regular rate, normal rhythm, normal heart sounds. Absent: systolic murmur, diastolic murmur, rubs, gallop, clicks GI/Abdominal exam: Present: soft, normal bowel sounds. Absent: distended, tenderness, guarding, rebound, rigid Extremities exam: Present: full ROM, normal capillary refill. Absent: tenderness, pedal edema, joint swelling, calf tenderness Back exam: Present: normal inspection Neurological exam: Present: alert, oriented X3 Psychiatric exam: Present: normal affect, normal mood Skin exam: Present: warm, dry, intact, other (Purpuric rash on bilateral lower extremities). Absent: normal color Course Vital Signs 07/19/24 07/19/24 17:02 20:37 Temperature 97.9 F 98.0 F Pulse Rate 96 73 Respiratory 17 18 Rate Blood Pressure 130/80 147/79 O2 Sat by Pulse 98 97 Oximetry Medical Decision Making - Medical Decision Making Was pt. sent in by a medical professional or institution (, JOE, SENIOR UX DEVELOPER, urgent care, hospital, or care home...) When possible be specific @ -No Did you speak to anyone other than the patient for history (EMS, parent, family, police, friend...)? What history was obtained from this source @ -No Did you review nursing and triage notes (agree or disagree)? Why? @ -I reviewed and agree with nursing and triage notes Were old charts reviewed (outside hosp., previous admission, EMS record, old EKG, old radiological studies, urgent care reports/EKG's, care home records)? Report findings @ -No old charts were reviewed Differential Diagnosis (chest pain, altered mental status, abdominal pain women, abdominal pain men, vaginal bleeding, weakness, fever, dyspnea, syncope, headache, dizziness, GI bleed, back pain, seizure, CVA, palpatations, mental health, musculoskeletal)? @ -henoch-schonlein purpura, vasculitis, ITP, allergic reaction, this list is not all inclusive EKG interpreted by me (3pts min.). @ -None X-rays interpreted by me (1pt min.). @ -None done CT interpreted by me (1pt min.). @ -None done U/S interpreted by me (1pt. min.). @ -None done What testing was considered but not performed or refused? (CT, X-rays, U/S, labs)? Why? @ -None What meds were considered but not given or refused? Why? @ -None Did you discuss the management of the patient with other professionals (JOE hollis i.e., Dr., SENIOR UX DEVELOPER, lab, RT, psych nurse, vp digital marketing social media and crm, special machine operator, teacher, special police officer, family independence case manager)? Give summary @ -No Was smoking cessation discussed for >3mins.? @ -No Was critical care preformed (if so, how long)? @ -No Were there social determinants of health that impacted care today? How? (Homelessness, low income, unemployed, alcoholism, drug addiction, transportation, low edu. Level, literacy, decrease access to med. care, prison, rehab)? @ -No Was there de-escalation of care discussed even if they declined (Discuss DNR or withdrawal of care, Hospice)? DNR status @ -No What co-morbidities impacted this encounter? (DM, HTN, Smoking, COPD, CAD, Cancer, CVA, ARF, Chemo, Hep., AIDS, mental health diagnosis, sleep apnea, morbid obesity)? @ -None Was patient admitted / discharged? Hospital course, mention meds given and route, prescriptions, significant lab abnormalities, going to OR and other pertinent info. @ -Discharge. Patient presented emergency department for rash. Patient has a purpuric rash on bilateral lower extremities. Laboratory studies obtained which revealedPlatelets within normal limits, normal coagulation studies, WBC and hemoglobin within normal limits. CMP is nonactionable at this time. Mild elevation in CRP. UA shows moderate blood, large leukocyte esterase, greater than 182 WBCs. This will be sent for urine culture. The patient will be started on antibiotics and provided a dose of steroids to assist this likely vasculitis from UTI. I advised that he should stay in the hospital although the patient wished to be discharged. Case discussed with Dr. Villatoro Undiagnosed new problem with uncertain prognosis? @ -No Drug Therapy requiring intensive monitoring for toxicity (Heparin, Nitro, Insulin, Cardizem)? @ -No Were any procedures done? @ -No Diagnosis/symptom? @ -UTI Acute, or Chronic, or Acute on Chronic? @ -acute Uncomplicated (without systemic symptoms) or Complicated (systemic symptoms)? @ -uncomplicated Side effects of treatment? @ -No Exacerbation, Progression, or Severe Exacerbation? @ -No Poses a threat to life or bodily function? How? (Chest pain, [place], [place], pneumonia, PE, COPD, DKA, ARF, appy, cholecystitis, CVA, Diverticulitis, Homicidal, Suicidal, threat to staff... and all critical care pts) @ -No - Lab Data Result diagrams: 07/19/24 18:07 07/19/24 18:07 Lab Results 07/19/24 07/19/2425 Range/Units 18:07 18:07 18:07 WBC 10.89 H (4.50-10.00) 10*3/uL RBC 4.60 (4.40-5.60) 10*6/uL Hgb 14.2 (13.0-17.0) g/dL Hct 42.0 (39.6-50.0) % MCV 91.3 (80.0-97.0) fL MCH 30.9 (27.0-32.0) pg MCHC 33.8 (32.0-37.0) g/dL Plt Count 398 (140-440) 10*3/uL MPV 9.5 (9.5-12.2) fL Immature Gran % (Auto) 1.0 % Neutrophils % 73.5 % Lymphocytes % 14.0 % Monocytes % 7.8 % Eosinophils % 3.2 % Basophils % 0.5 % Immature Gran # 0.11 H (0.00-0.04) 10*3/uL Neutrophils # 8.01 H (1.80-7.70) 10*3/uL Lymphocytes # 1.52 (0.90-5.00) 10*3/uL Monocytes # 0.85 (0.20-1.00) 10*3/uL Eosinophils # 0.35 (0.04-0.35) 10*3/uL Basophils # 0.05 (0.00-0.10) 10*3/uL PT 10.3 (10.0-12.5) sec INR 0.9 (<1.2) APTT 22.9 (22.0-30.0) sec Sodium 137 (137-145) mmol/L Potassium 4.2 (3.5-5.1) mmol/L Chloride 97 L (98-107) mmol/L Carbon Dioxide 30 (22-30) mmol/L Anion Gap 10 mmol/L BUN 19 (9-20) mg/dL Creatinine 0.86 (0.66-1.25) mg/dL Est GFR (CKD-EPI)AfAm >90 (>60 ml/min/1.73 sqM) Est GFR (CKD-EPI)NonAf 86 (>60 ml/min/1.73 sqM) Glucose 146 H (74-99) mg/dL Calcium 9.7 (8.4-10.2) mg/dL Total Bilirubin 0.6 (0.2-1.3) mg/dL AST 30 (17-59) U/L ALT 25 (4-49) U/L Alkaline Phosphatase 163 H (38-126) U/L C-Reactive Protein 2.0 H (<1.0) mg/dL Total Protein 6.7 (6.3-8.2) g/dL Albumin 3.8 (3.5-5.0) g/dL Urine Color Urine Appearance (Clear) Urine pH (5.0-8.0) Ur Specific [place] (1.001-1.035) Urine Protein (Negative) Urine Glucose (UA) (Negative) Urine Ketones (Negative) Urine Blood (Negative) Urine Nitrite (Negative) Urine Bilirubin (Negative) Urine Urobilinogen (<2.0) mg/dL Ur Leukocyte Esterase (Negative) Urine RBC (0-5) /hpf Urine WBC (0-5) /hpf 05/25 Range/Units 18:20 WBC (4.50-10.00) 10*3/uL RBC (4.40-5.60) 10*6/uL Hgb (13.0-17.0) g/dL Hct (39.6-50.0) % MCV (80.0-97.0) fL MCH (27.0-32.0) pg MCHC (32.0-37.0) g/dL Plt Count (140-440) 10*3/uL MPV (9.5-12.2) fL Immature Gran % (Auto) % Neutrophils % % Lymphocytes % % Monocytes % % Eosinophils % % Basophils % % Immature Gran # (0.00-0.04) 10*3/uL Neutrophils # (1.80-7.70) 10*3/uL Lymphocytes # (0.90-5.00) 10*3/uL Monocytes # (0.20-1.00) 10*3/uL Eosinophils # (0.04-0.35) 10*3/uL Basophils # (0.00-0.10) 10*3/uL PT (10.0-12.5) sec INR (<1.2) APTT (22.0-30.0) sec Sodium (137-145) mmol/L Potassium (3.5-5.1) mmol/L Chloride (98-107) mmol/L Carbon Dioxide (22-30) mmol/L Anion Gap mmol/L BUN (9-20) mg/dL Creatinine (0.66-1.25) mg/dL Est GFR (CKD-EPI)AfAm (>60 ml/min/1.73 sqM) Est GFR (CKD-EPI)NonAf (>60 ml/min/1.73 sqM) Glucose (74-99) mg/dL Calcium (8.4-10.2) mg/dL Total Bilirubin (0.2-1.3) mg/dL AST (17-59) U/L ALT (4-49) U/L Alkaline Phosphatase (38-126) U/L C-Reactive Protein (<1.0) mg/dL Total Protein (6.3-8.2) g/dL Albumin (3.5-5.0) g/dL Urine Color Colorless Urine Appearance Cloudy (Clear) Urine pH 6.5 (5.0-8.0) Ur Specific [place] 1.028 (1.001-1.035) Urine Protein Negative (Negative) Urine Glucose (UA) 4+ H (Negative) Urine Ketones Negative (Negative) Urine Blood Moderate H (Negative) Urine Nitrite Negative (Negative) Urine Bilirubin Negative (Negative) Urine Urobilinogen <2.0 (<2.0) mg/dL Ur Leukocyte Esterase Large H (Negative) Urine RBC 47 H (0-5) /hpf Urine WBC >182 H (0-5) /hpf Disposition Clinical Impression: UTI (urinary tract infection) Disposition: HOME SELF-CARE Condition: Stable Prescriptions: Cephalexin [Keflex] 500 mg PO Q6HR #28 cap Is patient prescribed a controlled substance at d/c from ED?: No Referrals: Gary Womack DO [Primary Care Provider] - 1-2 days
[2024-07-19 18:31] LABS: Basophils # (A) 0.05 10*3/uL (0.00-0.10); Basophils % (A) 0.5 %; Eosinophils # (A) 0.35 10*3/uL (0.04-0.35); Eosinophils % (A) 3.2 %; HGB 14.2 g/dL (13.0-17.0); Lymphocytes # (A) 1.52 10*3/uL (0.90-5.00); MCH 30.9 pg (27.0-32.0); MCHC 33.8 g/dL (32.0-37.0); MCV 91.3 fL (80.0-97.0); Mean Platelet Volume 9.5 fL (9.5-12.2); Monocytes # (A) 0.85 10*3/uL (0.20-1.00); Monocytes % (A) 7.8 %; Neutrophils # (A) 8.01 10*3/uL (1.80-7.70); Neutrophils % (A) 73.5 %; Platelet Count 398 10*3/uL (140-440); RDW 12.8 % (11.5-14.5); WBC 10.89 10*3/uL (4.50-10.00)
[2024-07-19 18:39] LABS: Appearance,Urine Cloudy (Clear); Bilirubin,Urine Negative (Negative); Blood,Urine Moderate (Negative); Color,Urine Colorless; Glucose,Urine (UA) 4+ (Negative); Ketones,Urine Negative (Negative); Leukocyte Esterase,Urine Large (Negative); Nitrite,Urine Negative (Negative); PH, Urine 6.5 (5.0-8.0); Protein,Urine Negative (Negative); RBC,Urine 47 /hpf (0-5); Specific Gravity,Urine 1.028 (1.001-1.035); Urobilinogen,Urine <2.0 mg/dL (<2.0); WBC,Urine >182 /hpf (0-5)
[2024-07-19 18:40] LABS: INR 0.9 (<1.2); Partial Thromboplastin Time 22.9 sec (22.0-30.0); Prothrombin Time 10.3 sec (10.0-12.5)
[2024-07-19 18:45] LABS: ALT 25 U/L (4-49); AST 30 U/L (17-59); African American GFR (CKD) >90 (>60 ml/min/1.73 sqM); Albumin 3.8 g/dL (3.5-5.0); Alkaline Phosphatase 163 U/L (38-126); Anion Gap 10 mmol/L; Blood Urea Nitrogen 19 mg/dL (9-20); Calcium 9.7 mg/dL (8.4-10.2); Carbon Dioxide 30 mmol/L (22-30); Chloride 97 mmol/L (98-107); Glucose 146 mg/dL (74-99); Non-African American GFR(CKD) 86 (>60 ml/min/1.73 sqM); Potassium 4.2 mmol/L (3.5-5.1); Sodium 137 mmol/L (137-145); Total Bilirubin 0.6 mg/dL (0.2-1.3); Total Protein 6.7 g/dL (6.3-8.2)
[2024-07-19] MEDS: cefTRIAXone IN SWFI 1,000 MG/10 ML SYRINGE IVP STA (20:27)
[2024-07-19] MEDS: methylPREDNISolone SOD SUCCI 125 MG/2 ML VIAL IV STA (20:27)
[2024-07-19] MEDS: cefTRIAXone 1,000 MG VIAL (IM USE) IM STA (20:35)
[2024-07-19] MEDS: methylPREDNISolone SOD SUCCI 125 MG/2 ML VIAL IM ONE (20:35)
[2024-07-19 20:37] VITALS: BP 147/79; PULSE 73; RESP 18; TEMP 98
== END 2024-07-19 20:38 | disposition home or self-care (01) ==
LOC: EC 17:00
DX: N39.0 Urinary tract infection, site not specified (principal); Z88.0 Allergy status to penicillin
CPT/HCPCS: 36415; 80053; 85025; 85610; 85730; 86140; 81001; 87086; 87077; 87186; 99283; 96374; 96375; J0696; J2919